=== PATIENT | male | born 1965 | race Caucasian/White ===

== ENCOUNTER 2016-08-23 08:34 | Emergency (ER) | payer OTHER ==
[2016-08-23] MEDS ORDERED: PANTOPRAZOLE SODIUM 40 MG in SODIUM CHLORIDE 100 ML IVPB ONE (08:49)
[2016-08-23] MEDS ORDERED: morphine CARPU-JECT 4 MG/1 ML DISP.SYRIN IVPUSH ONE ×2 (08:50→10:05)
[2016-08-23 08:54] VITALS: BMI 25.8
[2016-08-23] MEDS ORDERED: PANTOPRAZOLE SODIUM 100 ML IVPB ONE (08:55)
[2016-08-23] MEDS ORDERED: morphine CARPU-JECT 4 MG/1 ML DISP.SYRIN ONE ×2 (08:55→10:13)
[2016-08-23] MEDS ORDERED: ONDANSETRON 4 MG/2 ML VIAL ONE (09:02)
--- NOTE | 2016-08-23 09:04 | PDOC ---
History of Present Illness - General Chief Complaint: Pain, Acute Stated Complaint: ABD PAIN, VOMITING Time Seen by Provider: 08/23/16 08:48 History Source: Patient Exam Limitations: No Limitations - History of Present Illness Travel History: No Initial Comments: 08/23/16 08:51 51 yo M with significant PMHx of peptic ulcers presents with abdominal pain. He describes 10/10 constant non-radiating epigastric sharp burining abdominal pain. No alleviating or aggravating factors. Accompanied by dark/ bloody vomiting and black tarry stools.His last endoscopy was approx. 5 yrs ago in [place]. Denies CP, WHEELER, SOB, palpitations, or recent illness. Timing/Duration: reports: constant Quality: reports: severe Abdominal Pain Onset Location: reports: epigastric Pain Radiation: reports: no radiation Activities at Onset: reports: none Aggravating Factors: improves with: None Past History - Travel Traveled outside of the country in the last 30 days: No Close contact w/someone who was outside of country & ill: No - Past Medical History Allergies/Adverse Reactions: Allergies Allergy/AdvReac Type Severity Reaction Status Date / Time No Known Allergies Allergy Verified 08/23/16 08:47 Home Medications: Ambulatory Orders Esomeprazole Magnesium [Nexium 24Hr] 20 mg PO DAILY #14 tablet. 08/23/16 Sucralfate [Carafate -] 1 gm PO QID #60 tablet 08/23/16 Review of Systems - Review of Systems Able to Perform ROS?: Yes Is the patient limited Kazakh proficient: No Constitutional: Yes: Loss of Appetite, Weakness ABD/GI: Yes: Diarrhea, Nausea, Poor Appetite, Vomiting, Abdominal cramping, Tarry Stools All Other Systems: Reviewed and Negative *Physical Exam - Physical Exam General Appearance: Yes: Severe Distress HEENT: positive: EOMI, MORRO Neck: positive: Supple Respiratory/Chest: positive: Lungs Clear, Normal Breath Sounds. negative: Respiratory Distress, Accessory Muscle Use Cardiovascular: positive: Regular Rhythm, Regular Rate, S1, S2. negative: Edema , JVD, Murmur Gastrointestinal/Abdominal: positive: Normal Bowel Sounds, Soft, Tenderness Musculoskeletal: positive: Normal Inspection. negative: CVA Tenderness Extremity: positive: Normal Inspection, Normal Range of Motion Integumentary: positive: Normal Color, Dry, Warm. negative: Cyanotic, Erythema , Jaundice Neurologic: positive: Fully Oriented, Alert, Normal Mood/Affect ED Treatment Course - LABORATORY CBC & Chemistry Diagram: 08/23/16 09:22 08/23/16 09:22 - RADIOLOGY Radiology Studies Ordered: 08/23/16 16:44 * EXAM#: TYPE/EXAM: RESULT: [id number] US/GALLBLADDER US Gallbladder ultrasound Clinical information: evaluate for stones No biliary calculus is identified. The gallbladder appears unremarkable. No pericholecystic fluid is seen. The common bile duct diameter appears within normal limits measuring 0.4 cm. The liver, right kidney and partially visualized pancreas demonstrate no sonographic pathology. No free intraperitoneal fluid. Impression: Negative exam. No definite sonographic abnormality is identified. Reported By: Huber George MD 08/23/16 1143 * EXAM#: TYPE/EXAM: RESULT: [id number] CT/ABDOMEN CT WITH CONTRAST* Abdomen CT with intravenous contrast Clinical information: abdominal pain Multiplanar imaging was performed following the intravenous administration of nonionic contrast. As requested oral contrast was not administered. Exam coverage extends from the level of the diaphragm to the upper pelvis. A punctate hyperdense focus is noted along the posterior gallbladder wall (transaxial image 52). The the remainder of the gallbladder appears unremarkable. No biliary tract dilatation is seen. The liver, spleen, pancreas, adrenal glands and kidneys demonstrate no discrete abnormality. There is no aortic aneurysm. No definite lymphadenopathy is identified allowing for partially obscuring bowel loops. No free intraperitoneal fluid is seen. The unopacified bowel demonstrates no gross CT pathology. Impression: No definite CT findings acute pathology identified. A subtle punctate focus is seen along the posterior gallbladder wall which may represent a calculus , wall calcification or slightly dilated wall vein. No definite corresponding focus could be identified on sonography performed earlier the same date. Follow-up outpatient sonography may be considered. Reported By: Huber George MD 08/23/16 1523 Medical Decision Making - Medical Decision Making 08/23/16 09:40 Patient presents with severe epigastric pain. Will get CBC,CMP,and cardiac profile to help r/o anemia from acute blood loss or ACS. Patient was administered multiple doses of morphine with minimal pain relief. Abdominal US and CT scan have been ordered. 08/23/16 16:46 CT and abd. US negative for acute pathology. CBC and CMP all WNL - no signs of acute blood loss. Patient required multiple orders of Narcotic medications to control pain. Will discharge home with nexium and Carafate for 14 days and follow up with GI. *DC/Admit/Observation/Transfer Diagnosis at time of Disposition: Peptic ulcer - Discharge Dispostion Disposition: HOME Condition at time of disposition: Stable Admit: No - Prescriptions Prescriptions: Sucralfate [Carafate -] 1 gm PO QID #60 tablet Esomeprazole Magnesium [Nexium 24Hr] 20 mg PO DAILY #14 tablet.dr - Patient Instructions Printed Discharge Instructions: DI for Peptic Ulcer Additional Instructions: Please take your medication as directed. Follow up with you GI Dr. Howard as soon as possible. Try to avoid spicy foods. [place] diet. Increase activity as tolerated. If pain worsens or you develop fevers and increased vomiting please return to ER. - Post Discharge Activity Work/School Note: Back to Work
[2016-08-23] MEDS ORDERED: ONDANSETRON 4 MG/2 ML VIAL IVPUSH ONE (09:05)
[2016-08-23] MEDS ORDERED: MAG HYDROX/AL HYDROX/SIMETH 30 ML UNIT-DOSE CUP PO ONE (09:07)
--- NOTE | 2016-08-23 09:10 | PDOC ---
Attending Attestation - Resident Resident Name: Osito Lopez - ED Attending Attestation I have performed the following: I have examined & evaluated the patient, The case was reviewed & discussed with the resident, I agree w/resident's findings & plan - HPI HPI: 08/23/16 09:53 51y M hx of ?gastric? ulcers, presents with epigastric pain for several days associated with vomiting of a dark brown/black substance that started approx 4am. Pt endorses some fevers, vitals are normal, however pt appears uncomforotable and has mild epgiastric tenderness without any rebound/guarding. differential for the pts sypmtoms include ulcers, pancreatitis, consider acs/ disesction - screening ekg obtained that is non ischemic pulses symmetric in upper/lower extrmities pt given fluids, protonix, maalox, morphine awaiting stool guaiac 08/23/16 10:57 pts labs reviewed unremarkable labs pt still in pain, pain seems to localize to the RUQ - will obtain US of liver will give pt mor pain meds. 08/23/16 15:[address] negative for acute process pt feeling significantly improved abd reassesd and it is soft nontender. suspect pts pain may be secondary to to his stomach ulcers will ahve the pt fu with his GI doctor (Dr. Mendes) next week for furthe evlauation and will d/c the pt on nexium and carafate. return precautions were discussed - Physicial Exam PE: 08/24/16 17:51 see above - Medical Decision Making 08/24/16 17:51 see above Heart Score/ECG Review - ECG Impressions Comment:: 08/23/16 09:57 Twelve-lead EKG was performed and reviewed by me. There is normal sinus rhythm with a normal rate. Rate of 66 The axis is normal. The intervals are normal. There is normal R wave progression There are no ST or T wave abnormalities. Impression: Normal twelve-lead EKG
[2016-08-23] MEDS ORDERED: morphine CARPU-JECT 2 MG/1 ML DISP.SYRIN IVPUSH ONE (09:11)
[2016-08-23] MEDS ORDERED: MAG HYDROX/AL HYDROX/SIMETH 30 ML UNIT-DOSE CUP ONE (09:11)
[2016-08-23] MEDS ORDERED: morphine CARPU-JECT 2 MG/1 ML DISP.SYRIN ONE ×2 (09:14→10:13)
[2016-08-23 09:31] LABS: BASOPHIL 0.9 % (0-2.0); EOSINOPHIL 0.8 % (0-4.5); MCH 29.2 pg (25.7-33.7); MCHC 33.2 g/dl (32.0-35.9); MEAN PLT VOLUME 8.2 fl (7.5-11.1); NEUTROPHILS 67.6 % (42.8-82.8); PLATELET COUNT 288 K/MM3 (134-434); RDW 14.1 % (11.9-15.9); WHITE BLOOD COUNT 13.5 K/mm3 (4.0-10.0)
--- NOTE | 2016-08-23 09:52 | EKG ---
Test Reason : Blood Pressure : / mmHG Vent. Rate : 066 BPM Atrial Rate : 066 BPM P-R Int : 176 ms QRS Dur : 078 ms QT Int : 416 ms P-R-T Axes : 071 061 070 degrees QTc Int : 436 ms NORMAL SINUS RHYTHM NORMAL ECG NO PREVIOUS ECGS AVAILABLE Confirmed by KRIS COOLEY MD ([id number]) on 08/23/2016 9:51:49 AM Referred By: Confirmed By:KRIS COOLEY MD
[2016-08-23 09:57] LABS: ALBUMIN 3.9 g/dl (3.4-5.0); ANION GAP 13 (8-16); BILIRUBIN,TOTAL 0.3 mg/dL (0.2-1.0); CALCIUM 9.3 mg/dL (8.5-10.1); CO2 21 mmol/L (21-32); COCKROFT - GAULT 85.99; CREATININE 1.2 mg/dL (0.7-1.3); GLUCOSE,RANDOM 118 mg/dL (74-106); SGPT/ALT 37 U/L (12-78); TOT PROT 7.2 g/dl (6.4-8.2)
[2016-08-23 09:58] LABS: ALK PHOS 74 U/L (45-117)
[2016-08-23 10:03] LABS: SGOT/AST 29 U/L (15-37)
[2016-08-23] MEDS ORDERED: HYDROmorphone HCL CARPU-JECT 2 MG/1 ML DISP.SYRIN IVPUSH ONE (10:56)
[2016-08-23] MEDS ORDERED: HYDROmorphone HCL CARPU-JECT 1 MG/1 ML DISP.SYRIN ONE (11:37)
[2016-08-23 11:44] LABS: TROPONIN I < 0.02 ng/ml (0.00-0.05)
[2016-08-23 16:38] LABS: BASOPHIL 0.6 % (0-2.0); MCH 29.5 pg (25.7-33.7); MEAN CELL VOLUME 86.9 fl (80-96); MEAN PLT VOLUME 7.7 fl (7.5-11.1); NEUTROPHILS 82.1 % (42.8-82.8); PLATELET COUNT 284 K/MM3 (134-434); RDW 14.4 % (11.9-15.9); WHITE BLOOD COUNT 16.7 K/mm3 (4.0-10.0)
[2016-08-23 17:19] LABS: TROPONIN I < 0.02 ng/ml (0.00-0.05)
[2016-08-23 17:36] VITALS: BP 142/87; PULSE 60; TEMP 98.5
== END 2016-08-23 17:30 | disposition home or self-care (01) ==
LOC: JER 08:34
PROC: 3E033GC Introduction of Other Therapeutic Substance into Peripheral Vein, Percutaneous Approach (ICD-10-PCS; principal; 2016-08-23)
PROC: 3E033GC Introduction of Other Therapeutic Substance into Peripheral Vein, Percutaneous Approach (ICD-10-PCS; 2016-08-23)
PROC: 3E033NZ Introduction of Analgesics, Hypnotics, Sedatives into Peripheral Vein, Percutaneous Approach (ICD-10-PCS; 2016-08-23)
PROC: 3E033NZ Introduction of Analgesics, Hypnotics, Sedatives into Peripheral Vein, Percutaneous Approach (ICD-10-PCS; 2016-08-23)
DX: K27.3 Acute peptic ulcer, site unspecified, without hemorrhage or perforation (principal)
CPT/HCPCS: 36415; 74160-TC; 76705-TC; 80053; 82272; 82550; 82553; 83690; 84484; 85025; 86850; 86900; 86901; 93005; 93010; 96365; 96375; 99283-25

== ENCOUNTER 2021-12-31 20:51 | Emergency (ER) | payer OTHER ==
[2021-12-31 21:10] VITALS: BP 121/67; PULSE 88; RESP 20; TEMP 98.2; BMI 28.7
[2021-12-31] MEDS ORDERED: KETOROLAC TROMETHAMINE 30 MG/1 ML VIAL IM ONE (22:32)
[2021-12-31] MEDS ORDERED: KETOROLAC TROMETHAMINE 30 MG/1 ML VIAL ONE (23:33)
[2021-12-31 23:52] LABS: EOS % 4.9 % (0-4.5); HEMATOCRIT 40.4 % (35.4-49); HEMOGLOBIN 13.7 GM/dL (11.7-16.9); LYMPH % 24.6 % (8-40); MCH 30.2 pg (25.7-33.7); MCHC 33.8 g/dl (32.0-35.9); MEAN CELL VOLUME 89.1 fl (80-96); MEAN PLT VOLUME 6.9 fl (7.5-11.1); MONO % 6.9 % (3.8-10.2); NEUT % 62.6 % (42.8-82.8); PLATELET COUNT 272 10^3/uL (134-434); RBC 4.53 M/mm3 (4.00-5.60); RDW 14.1 % (11.9-15.9); WHITE BLOOD COUNT 9.2 K/mm3 (4.0-10.0)
[2022-01-01 00:12] LABS: CALCIUM 9.3 mg/dL (8.5-10.1)
[2022-01-01 00:14] LABS: ALBUMIN 3.6 g/dl (3.4-5.0); BLOOD UREA NITROGEN 14.8 mg/dL (7-18)
[2022-01-01 00:16] LABS: CREATININE 0.9 mg/dL (0.55-1.3)
[2022-01-01 00:17] LABS: TOT PROT 6.8 g/dl (6.4-8.2)
[2022-01-01 00:18] LABS: BILIRUBIN,TOTAL 0.3 mg/dL (0.2-1)
== END 2022-01-01 01:38 | disposition left against medical advice (07) ==
LOC: JER 20:51 → JERFT 20:51 → JER 01-01 01:38
PROC: 3E0233Z Introduction of Anti-inflammatory into Muscle, Percutaneous Approach (ICD-10-PCS; principal; 2021-12-31)
DX: R52 Pain, unspecified (principal)
CPT/HCPCS: 36415; 70487-TC; 80053; 85025; 99285-25; Q9967

== ENCOUNTER 2023-08-20 17:44 | Emergency (ER) | payer OTHER ==
[2023-08-20 17:57] VITALS: RESP 17; TEMP 98.1; BMI 28.7
[2023-08-20] MEDS ORDERED: LIDOCAINE HCL 2% (20ML MULTI-DOSE VIAL) ONE (18:29)
[2023-08-20] MEDS ORDERED: ACETAMINOPHEN 500 MG TABLET (FP) ONE (18:29)
[2023-08-20] MEDS: ACETAMINOPHEN 500 MG TABLET (FP) PO ONE (18:30)
[2023-08-20] MEDS: LIDOCAINE HCL 1%, 10 MG/ML (50 mL VIAL) SQ ONE (18:30)
[2023-08-20] MEDS ORDERED: PIPERACILLIN/TAZOB 3.375 GM 3.375 GM/50 ML BAG IVPB ONE (20:18)
[2023-08-20] MEDS ORDERED: KETOROLAC TROMETHAMINE 30 MG/1 ML VIAL ONE (20:18)
[2023-08-20 20:23] LABS: BASO % 0.5 % (0-2.0); EOS % 3.2 % (0-4.5); HEMATOCRIT 48.5 % (35.4-49); HEMOGLOBIN 16.7 GM/dL (11.7-16.9); LYMPH % 24.6 % (8-40); MCH 30.4 pg (25.7-33.7); MCHC 34.4 g/dl (32.0-35.9); MEAN CELL VOLUME 88.3 fl (80-96); MEAN PLT VOLUME 7.7 fl (7.5-11.1); MONO % 5.5 % (3.8-10.2); NEUT % 66.2 % (42.8-82.8); PLATELET COUNT 324 10^3/uL (134-434); RBC 5.49 M/mm3 (4.00-5.60); WHITE BLOOD COUNT 9.9 K/mm3 (4.0-10.0)
[2023-08-20 20:30] LABS: INR 1.01 (0.83-1.09); PROTHROMBIN TIME (PATIENT) 11.7 SEC (9.7-13.0)
[2023-08-20 20:33] LABS: ACTIVATED PTT 33.6 SECONDS (25.2-36.5)
[2023-08-20] MEDS: SODIUM CHLORIDE 1,000 ML IV STA (20:43)
[2023-08-20] MEDS: KETOROLAC TROMETHAMINE 30 MG/1 ML VIAL IVPUSH ONE (20:43)
[2023-08-20] MEDS: PIPERACILLIN/TAZOB 3.375 GM 3.375 GM in DEXTROSE 5%-WATER - 50 ML IVPB ONE (20:44)
[2023-08-20 20:48] LABS: POTASSIUM 4.3 mmol/L (3.5-5.1)
[2023-08-20 20:50] LABS: CALCIUM 9.5 mg/dL (8.5-10.1)
[2023-08-20 20:51] LABS: ALBUMIN 4.1 g/dl (3.4-5.0); BLOOD UREA NITROGEN 15.9 mg/dL (7-18)
[2023-08-20 20:56] LABS: BILIRUBIN,TOTAL 0.6 mg/dL (0.2-1); TOT PROT 7.5 g/dl (6.4-8.2)
[2023-08-20] MEDS ORDERED: VANCOMYCIN 1 GRAM (PRE-DOCKED) 1,000 MG/250 ML BAG IVPB ONE (21:57)
[2023-08-20] MEDS: VANCOMYCIN 1,000 MG in DEXTROSE 5%-WATER - 250 ML IVPB ONE (22:14)
[2023-08-20 23:03] VITALS: BP 115/61; PULSE 67
== END 2023-08-21 01:16 | disposition left against medical advice (07) ==
LOC: JER 17:44 → JERFT 17:44 → JER 08-21 01:16
PROC: 0H9QXZZ Drainage of Finger Nail, External Approach (ICD-10-PCS; principal; 2023-08-20)
PROC: 2W3KX1Z Immobilization of Left Finger using Splint (ICD-10-PCS; 2023-08-20)
PROC: 3E03329 Introduction of Other Anti-infective into Peripheral Vein, Percutaneous Approach (ICD-10-PCS; 2023-08-20)
PROC: 3E030GC Introduction of Other Therapeutic Substance into Peripheral Vein, Open Approach (ICD-10-PCS; 2023-08-20)
PROC: 3E0337Z Introduction of Electrolytic and Water Balance Substance into Peripheral Vein, Percutaneous Approach (ICD-10-PCS; 2023-08-20)
DX: S62.631B Displaced fracture of distal phalanx of left index finger, initial encounter for open fracture (principal); S60.122A Contusion of left index finger with damage to nail, initial encounter; L03.012 Cellulitis of left finger; W23.0XXA Caught, crushed, jammed, or pinched between moving objects, initial encounter
CPT/HCPCS: 36415; 73130-TC-LT-FY; 73140-TC-LT-FY; 73200-TC-RT; 80053; 83605; 85025; 85610; 85651; 85730; 86140; 87040; 87070; 87205; 99285-25